=== PATIENT | female | born 1940 | race Caucasian/White ===

== ENCOUNTER 2021-03-25 05:04 | Emergency (ER) | payer MEDICARE ==
[~2021-03-25] VITALS: Ht 172.7 cm; Wt 136.4 kg
[2021-03-25 05:22] VITALS: BP 147/82
[2021-03-25] MEDS ORDERED: ondansetron/PF 4mg/2ml inj IV ONE (05:40)
[2021-03-25] MEDS ORDERED: normal saline 1000ml 1,000 ML IV ONE (05:40)
[2021-03-25 06:04] LABS: ALBUMIN 3.3 G/DL (3.4-5.0); ANION GAP 8 (8-16); BLOOD UREA NITROGEN 21 MG/DL (7-18); BUN/CREATININE RATIO 30.4 (6.6-38.0); CALCIUM 9.3 MG/DL (8.5-10.1); CHLORIDE 95 MMOL/L (99-107); CREATININE 0.69 MG/DL (0.40-0.90); GLUCOSE 142 MG/DL (70-104); POTASSIUM 3.3 MMOL/L (3.5-5.1); SODIUM 137 MMOL/L (135-145); TOTAL CARBON DIOXIDE 34.5 MMOL/L (24-32); eGFR 81 ML/MIN
[2021-03-25 06:05] LABS: BASOPHILS % (AUTO) 0.1 % (0-1); EOSINOPHILS % (AUTO) 0 % (0-6); HEMATOCRIT 45.8 % (35.0-45.0); HEMOGLOBIN 15.3 g/dl (12.0-16.0); LYMPHOCYTES # (AUTO) 0.3 X10'3 (1.1-4.8); LYMPHOCYTES % (AUTO) 5.7 % (21-51); MEAN CORPUSCULAR HEMOGLOBIN 29.8 PG (27.0-31.0); MEAN CORPUSCULAR HGB CONC 33.4 g/dL (33.0-36.5); MEAN PLATELET VOLUME 7.2 FL (7.4-10.4); MONOCYTES # (AUTO) 0.5 X10'3 (0-0.9); NEUTROPHILS % (AUTO) 85.2 % (42-75); PLATELET COUNT 183 X10'3 (140-440); RED BLOOD COUNT 5.15 X10'6 (4.20-5.60); RED CELL DISTRIBUTION WIDTH 15.3 % (11.5-14.5); WHITE BLOOD COUNT 5.9 X10'3 (4.5-11.0)
[2021-03-25] MEDS ORDERED: ONDA4TAB12 PO (06:18)
--- NOTE | 2021-03-25 09:31 | NUR ---
[facility] WILL TRANSPORT PT AT [phone]
--- NOTE | 2021-03-25 11:44 | NUR ---
report to Maddi MICHELE at [facility], transport is here to take pt back to facility
--- NOTE | 2021-03-25 12:03 | NUR ---
pt's small castorena pillow left here, contacted [facility] and left message pillow will be at charge nurse desk
== END 2021-03-25 11:50 ==
LOC: ER 05:06
DX: U07.1 COVID-19 (principal); R11.2 Nausea with vomiting, unspecified; I10 Essential (primary) hypertension; J44.9 Chronic obstructive pulmonary disease, unspecified; M79.7 Fibromyalgia; Z86.16 Personal history of COVID-19; Z88.0 Allergy status to penicillin; Z90.710 Acquired absence of both cervix and uterus; Z79.899 Other long term (current) drug therapy
CPT/HCPCS: 36415; 71045; 80048; 85025; 96361; 96374; 99284; J2405; J7030